=== PATIENT | male | born 2000 | race Caucasian/White ===

== ENCOUNTER 2020-05-18 23:37 | Day surgery (SDC) | payer BC, OTHER ==
[2020-05-19] MEDS ORDERED: Nitroglycerin 2% Ointment 1 INCH/1 GM Packet ONE (00:37)
[2020-05-19] MEDS ORDERED: Lidocaine Viscous Sol 2% 15 ml UD Cup ONE (00:37)
[2020-05-19] MEDS ORDERED: Mag-Al 1200 mg/1200 mg/30 ML UDCUP ONE (00:37)
[2020-05-19 03:15] LABS: #Basophils 0.1 thou/uL (0.0-0.2); #Eosinphils 0.3 thou/uL (0.0-0.7); #Lymphocytes 2.5 thou/uL (1.20-3.40); #Monocytes 0.5 thou/uL (0.11-0.59); #Neutrophils 4.6 thou/uL (1.40-6.50); %Basophils 0.9 % (0.0-1.0); %Eosinophils 3.7 % (0.0-10.0); %Lymphocytes 31.7 % (28.0-48.0); %Monocytes 6.5 % (0.0-4.0); %Neutrophils 57.2 % (31.0-61.0); Hemoglobin 16.3 g/dL (14.0-18.0); Mean Corpuscular HGB CONC 33.5 g/dL (32.0-36.0); Mean Corpuscular Hemoglobin 29.5 pg (25.0-35.0); Mean Corpuscular Volume 88.1 fL (78.0-98.0); Mean Platelet Volume 8.3 fL (7.4-10.4); Platelet Count 215 thou/uL (130-400); RBC Distribution Width 11.5 % (11.5-14.5); Red Blood Cell (RBC) Count 5.51 mill/uL (4.00-5.20)
[2020-05-19] MEDS ORDERED: Ondansetron PF 4 MG/2 ML Vial ONE ×2 (03:29→09:03)
[2020-05-19 03:35] LABS: ALT (SGPT) 31 U/L (8-55); AST (SGOT) 20 U/L (5-34); Albumin 4.9 g/dL (3.5-5.0); Alkaline Phosphatase 56 U/L (50-130); Anion Gap 12 mmol/L (10-20); BUN (Urea Nitrogen) 14 mg/dL (8.9-20.6); Bilirubin, Total 0.6 mg/dL (0.2-1.2); Calc. Creatinine Clearance 0 mL/min (70-130); Calcium 9.7 mg/dL (7.8-10.44); Carbon Dioxide 27 mmol/L (22-29); Chloride 107 mmol/L (98-107); Estimated GFR-MDRD Greater than 90; Globulin 2.9 g/dL (2.4-3.5); Glucose 95 mg/dL (70-105); Lipase 21 U/L (8-78); Potassium 3.9 mmol/L (3.5-5.1); Protein, Total 7.8 g/dL (6.0-8.3); Sodium 142 mmol/L (136-145)
[2020-05-19] MEDS ORDERED: Midazolam HCl 2 mg/2 ml Vial ONE (04:06)
[2020-05-19] MEDS ORDERED: Fentanyl 100 MCG/2 ML VIAL ONE (04:06)
--- NOTE | 2020-05-19 06:10 | CON ---
DATE OF CONSULTATION: 05/19/2020 REASON FOR CONSULTATION: Esophageal food impaction. CONSULTING PHYSICIAN: Dr. Ying. HISTORY OF PRESENT ILLNESS: The patient is a 19-year-old male with past medical history of seasonal allergies, childhood asthma, and childhood acid reflux, presenting with complaints of dysphagia. He states that he was in his usual state of health until earlier this evening, where upon at 8 o'clock, he was eating dinner (pot roast) and experienced acute onset of dysphagia. This was characterized as the sensation of food getting stuck at the level of the sternal notch and did not progress despite multiple attempts to dislodge the food bolus. With disimpaction/food bolus not moving, it prompted the patient to consume more butter, sodas, and even [employer] in an attempt to dislodge the bolus, but were unsuccessful. As such, the patient then went to [facility] ER for further evaluation. While in the ER, he was noted to have normal vital signs, but could not tolerate his own secretions. Oral challenges with water were also unsuccessful with increased nausea and vomiting with ingestion of any liquids. On further interview, the patient states that he has been having intermittent dysphagia for the last 5 to 6 years, characterized as the sensation that food was getting stuck or having difficulty moving through the level of the sternal notch around twice per month. Usually, this would last for at maximum, approximately 20 minutes and then would dislodge with either consumption of water or sodas. This would occur only with solids but no liquids and with solids of increased density (meats and breads). Otherwise, he currently denies any nausea, fevers, chills, hematemesis, melena, hematochezia, abdominal pain, or weight loss. REVIEW OF SYSTEMS: A 10-category review of systems was obtained with all responses negative except for the pertinent positives as listed in HPI. PAST MEDICAL HISTORY: As per HPI. PAST SURGICAL HISTORY: Right foot surgery and wisdom teeth extraction. FAMILY HISTORY: Denies any GI malignancies, but his father does have recurrent esophageal problems. OUTPATIENT MEDICATIONS: 1. Mariya as needed. 2. Flonase as needed. 3. Ibuprofen 200 mg as needed. ALLERGIES: NO KNOWN DRUG ALLERGIES. SOCIAL HISTORY: Denies any tobacco, alcohol, or illicit drug use. PHYSICAL EXAMINATION: VITAL SIGNS: Have not been recorded in the chart as of yet. GENERAL: The patient is lying in bed, in no acute distress. Alert and oriented x4. HEENT: Normocephalic and atraumatic. NECK: Supple. No JVD or scleral icterus noted. CARDIOVASCULAR: Regular rate and rhythm with no discernible murmurs, gallops, or rubs. RESPIRATORY: Clear to auscultation bilaterally with no discernible wheezes or rales. ABDOMEN: Normoactive bowel sounds. Soft, nontender, and nondistended. EXTREMITIES: No cyanosis, clubbing, or edema. LABORATORY DATA: CBC with a white blood cell count of 8, hemoglobin 16.3, hematocrit 48.5, and platelets 215. Chemistry with a sodium of 142, potassium 3.9, chloride 107, CO2 of 27, BUN 14, creatinine 1.03, glucose 95, AST 20, ALT 31, alkaline phosphatase 56, total bilirubin 0.6, albumin 4.9, and lipase 21. IMAGING DATA: X-rays of the chest and neck were performed in the ER with final read still pending; however, per my read, there were no abnormalities on these plain films. ASSESSMENT AND PLAN: The patient is a 19-year-old male with past medical history of seasonal allergies, asthma, and acid reflux, presenting with an acute esophageal food bolus impaction. Esophageal food bolus impaction/esophageal obstruction: The patient is presenting with acute onset of dysphagia characterized as the sensation that food has gotten stuck at the level of the sternal notch after eating pot roast. He has been unable to dislodge the food bolus with attempts at eating butter, drinking soda, and taking [employer], all unsuccessful. On physical examination, the patient intermittently has a cup at bedside, in which he spits into, being unable to tolerate his own secretions. At this time, he more than likely has a complete obstruction of the esophagus secondary to food bolus impaction and with a history of seasonal allergies, he is at risk for eosinophilic esophagitis. Differential could include eosinophilic esophagitis, acid reflux, esophageal bar, esophageal stricture/stenosis, esophageal dysmotility (less likely), and/or GI neoplasm (much less likely). RECOMMENDATIONS: 1. Would continue n.p.o. status in preparation for emergent upper endoscopy. 2. Would proceed with emergent upper endoscopy for removal of the food bolus. 3. Would more than likely need to be placed on a PPI in the postoperative setting. 4. Additional recommendations to follow upper endoscopy. Job ID: [id number]
--- NOTE | 2020-05-19 06:25 | OP ---
DATE OF PROCEDURE: 05/19/2020 PROCEDURES PERFORMED: Esophagogastroduodenoscopy with removal of foreign body, also with biopsies. INDICATION FOR PROCEDURE: Esophageal food bolus impaction. DESCRIPTION OF PROCEDURE: After the risks and benefits of the procedure were explained to the patient including risks of bleeding, infection, perforation, reactions to anesthesia, aspiration, and/or pain, informed consent was obtained. The patient was then taken to the endoscopy suite, where general anesthesia was administered, followed by endotracheal tube intubation. Once the patient was sedated and intubated, he was maneuvered into the left lateral decubitus position in anticipation of the upper endoscopy. Once in adequate position, the standard gastroscope was introduced into the mouth with intubation of the esophagus, stomach, and the proximal small intestines with the findings listed below. The patient tolerated the procedure well with no immediate perioperative complications. On conclusion of the procedure, all equipment was removed from the patient and he was transferred to PACU in satisfactory condition. FINDINGS: Esophagus: A large food bolus impaction was noted at approximately 28 cm past the incisors that completely occluded the esophageal lumen. Using a combination of Raptor-tooth forceps and four-pronged forceps, the food bolus was then successfully extracted through the mouth. Upon careful examination of the mucosa after its removal, multiple longitudinal furrows were seen throughout the entire length of the esophagus along with small circular rings extending along the entire length of the esophagus as well. In the area where the food bolus occupied the esophageal lumen, there was some mild increased mucosal erythema and friability of the esophageal mucosa, but no evidence of stricture or stenosis in this particular region. Otherwise, normal-appearing mucosa was seen in the proximal and distal esophagus. Given the higher likelihood of eosinophilic esophagitis, biopsies were then obtained from the distal esophagus and proximal esophagus and placed in specimen jars for further evaluation. Otherwise, there was no evidence of overt ulceration, mass lesions, or active/recent bleeding. Stomach: Normal-appearing mucosa was seen in the gastric cardia, fundus, body, greater curvature, antrum, and incisura. There was no evidence of erosions, ulcerations, mass lesions, or active/recent bleeding. Duodenum: Normal-appearing mucosa was seen in the duodenal bulb and second portion of the duodenum. There was no evidence of erosions, ulcerations, mass lesions, or active/recent bleeding. IMPRESSION: 1. A large esophageal food bolus seen at 28 cm past the incisors, status post successful extraction. 2. Longitudinal furrows and small circular rings seen throughout the entire length of the esophagus consistent with the eosinophilic esophagitis, status post biopsies. RECOMMENDATIONS: 1. We would place the patient on omeprazole 40 mg daily in light of either acid reflux or eosinophilic esophagitis. 2. We would place the patient on a liquid diet for the next 48 hours, then advance to a soft diet until seen in GI clinic in 2 to 3 weeks. 3. Strongly encourage adequate chewing of food prior to swallowing. 4. We will follow up on the biopsy results. If the biopsies are indeed indicative of eosinophilic esophagitis, the patient may need to be placed on fluticasone 220 mcg twice daily as part of further management for this condition. Job ID: [id number]
--- NOTE | 2020-05-19 08:20 | RAD ---
EXAM: CHEST ONE VIEW HISTORY: Question of foreign body in esophagus. Patient complains of uncomfortable feeling and pressure in rad[address] st. COMPARISON: None FINDINGS: The cardiac silhouette and pulmonary vasculature are within normal limits. The lungs are clear. The o sseous structures are intact. IMPRESSION: No acute cardiopulmonary process.
--- NOTE | 2020-05-19 08:22 | RAD ---
EXAM: XR Neck Soft Tissue 2 views PROVIDED CLINICAL HISTORY: Patient reports foreign body sensation in esophagus. COMPARISON: None FINDINGS: Epiglottis and aryepiglottic folds demonstrate a normal appearance. No discernible radiopaque foreign body is seen overlying the region of the neck soft tissues. Prevertebral soft tissues are within normal limits. Osseous structures have a normal appearance. IMPRESSION: 1. No obvious radiopaque foreign body is seen.
[2020-05-19] MEDS ORDERED: Dexamethasone 20 MG/5 ML VIAL ONE (09:03)
[2020-05-19] MEDS ORDERED: Succinylcholine Chloride 20 MG/ML 10 ml SYRINGE FS ONE (09:03)
[2020-05-19] MEDS ORDERED: PROPOFOL 200 MG/20 ML VIAL ONE (09:03)
[2020-05-19] MEDS ORDERED: Lidocaine 1% PF 5 ML VIAL ONE (09:03)
[2020-05-19 12:06] LABS: SARS-CoV-2 MS2 Positive; SARS-CoV-2 N Gene Negative; SARS-CoV-2 S Gene Negative; SARS-CoV-2 by NAA Not Detected (NotDetected); SARS-CoV-2 orf1ab Negative
--- NOTE | 2020-05-22 17:52 | EKG ---
Test Reason : Blood Pressure : / mmHG Vent. Rate : 079 BPM Atrial Rate : 079 BPM P-R Int : 136 ms QRS Dur : 096 ms QT Int : 384 ms P-R-T Axes : 074 059 055 degrees QTc Int : 440 ms Normal sinus rhythm with sinus arrhythmia Normal ECG Confirmed by YONI CASE ([id number]), story editor FREDDIE JAIN ([id number]) on 05/22/2020 5:50:37 PM Referred By: Confirmed By:YONI CASE
== END 2020-05-19 06:33 | disposition home or self-care (01) ==
LOC: ERS 23:37 → SDC/OP 05-19 04:56
PROVIDERS: ATTEND Internal Medicine
DX: T18.128A Food in esophagus causing other injury, initial encounter (principal); K20.0 Eosinophilic esophagitis; J45.909 Unspecified asthma, uncomplicated; Z20.828 Contact with and (suspected) exposure to other viral communicable diseases
CPT/HCPCS: 36415; 70360; 71045; 80053; 83690; 85025; 87635; 88305; 88312; 88313; 93005; 96374; 96375; J1100; J1610; J2250; J2405; J2704; J3010; U0003